=== PATIENT | male | born 1985 | race Caucasian/White ===

== ENCOUNTER 2017-08-28 23:41 | Inpatient (IN) | payer OTHER ==
[2017-08-29] MEDS ORDERED: MANNITOL 500 ML IV ONE (00:01)
[2017-08-29 00:33] LABS: ABSOLUTE BASOPHILS # (AUTO) 0.1 10^3/uL (0.0-0.2); ABSOLUTE EOSINOPHILS # (AUTO) 0.1 10^3/uL (0.0-0.6); ABSOLUTE LYMPHOCYTES (AUTO) 3.4 10^3/uL (0.5-4.7); ABSOLUTE MONOCYTES (AUTO) 0.4 10^3/uL (0.1-1.4); ABSOLUTE NEUT (AUTO) 3.6 10^3/uL (1.7-8.2); BASOPHILS % (AUTO) 1.1 % (0-2); EOSINOPHILS % (AUTO) 1.2 % (0-6); HEMATOCRIT 33.3 % (37.9-51.0); HEMOGLOBIN 10.9 g/dL (13.5-17.0); HGB HCT DIFFERENCE -0.6; LYMPHOCYTES % (AUTO) 44.7 % (13-45); MEAN CORPUSCULAR HGB CONC 32.8 g/dL (32.0-36.0); MEAN CORPUSCULAR VOLUME 95 fl (80-97); MONOCYTES % (AUTO) 4.7 % (3-13); RED BLOOD COUNT 3.52 10^6/uL (4.35-5.55); RED CELL DISTRIBUTION WIDTH 13.7 % (11.5-14.0); SEGMENTED NEUTROPHILS % (AUTO) 48.3 % (42-78); WHITE BLOOD COUNT 7.5 10^3/uL (4.0-10.5)
[2017-08-29 00:40] LABS: ALANINE AMINOTRANSFERASE 31 U/L (21-72); ALKALINE PHOSPHATASE 45 U/L (38-126); ASPARTATE AMINO TRANSFERASE 31 U/L (17-59); BILIRUBIN,DIRECT 0.1 mg/dL (0.0-0.4); BILIRUBIN,TOTAL 0.3 mg/dL (0.2-1.3); BLOOD UREA NITROGEN 14 mg/dL (7-20); CALCIUM 8.8 mg/dL (8.4-10.2); CARBON DIOXIDE 19 mmol/L (22-30); CHLORIDE 105 mmol/L (98-107); CREATININE RESULT 1.51 mg/dL (0.52-1.25); GLUCOSE 207 mg/dL (75-110); POTASSIUM 3.2 mmol/L (3.6-5.0); TOTAL PROTEIN 4.6 g/dL (6.3-8.2)
[2017-08-29] MEDS ORDERED: NICARDIPINE HCL RTU, ISO-OS 20 MG/200 ML RTUINJ IV PRN (00:48)
[2017-08-29 00:50] LABS: ANION GAP 19 (5-19); SODIUM 143.3 mmol/L (137-145)
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
[2017-08-29] MEDS ORDERED: DEXAMETHASONE SOD PHOS INJ 10 MG/1 ML VIAL IV PRN (02:32)
[2017-08-29] MEDS ORDERED: METOPROLOL TARTRATE PF/INJ 5 MG/5 ML SDV IV ONE (05:54)
[2017-08-29] MEDS ORDERED: NORMAL SALINE 1000 ML 1,000 ML IV ONE (07:27)
[2017-08-29] MEDS ORDERED: NORMAL SALINE 1000 ML 250 ML IV ONE (07:29)
[2017-08-29] MEDS ORDERED: NOREPINEPHRINE BITARTRATE INJ/PF 4 MG/4 ML SDV IV ONE (07:36)
[2017-08-29] MEDS ORDERED: PHENYLEPHRINE HCL INJ/PF 10 MG/1 ML SDV ONE (07:43)
[2017-08-29] MEDS ORDERED: POTASSI CL 20 MEQ/50 ML RIDER 20 MEQ/50 ML RTUPB IV ONE (08:23)
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
--- NOTE | 2017-08-29 08:52 | RADIOLOGY REPORT (SQ) ---
EXAM DESCRIPTION: CHEST SINGLE VIEW COMPLETED DATE/TIME: 08/29/2017 8:42 am REASON FOR STUDY: central line placement COMPARISON: AP chest 08/29/2017 EXAM PARAMETERS: NUMBER OF VIEWS: One view. TECHNIQUE: Single frontal radiographic view of the chest acquired. RADIATION DOSE: NA LIMITATIONS: None. FINDINGS: Endotracheal tube tip 4 5 cm above the violet. Nasogastric tube tip in the stomach, side port at the GE junction. Right-sided central line tip superior vena cava. LUNGS AND PLEURA: No pneumothorax. Lungs are clear. No pleural effusion. MEDIASTINUM AND HILAR STRUCTURES: No masses. Contour normal. HEART AND VASCULAR STRUCTURES: Heart normal in size. Normal vasculature. BONES: No acute findings. HARDWARE: As above OTHER: No other significant finding. IMPRESSION: Interval placement of a right subclavian triple lumen catheter with the tip in the super ior vena cava. No pneumothorax. Endotracheal and nasogastric tubes in good positioning. No acute infiltrates TECHNICAL DOCUMENTATION: JOB ID: [id number] [employer]- All Rights Reserved
[2017-08-29] MEDS ORDERED: RINGERS SOLUTION,LACTATED 1,000 ML IV ONE (09:00)
[2017-08-29 09:11] LABS: HEMATOCRIT 35.7 % (37.9-51.0); HGB HCT DIFFERENCE 0.3; MEAN CORPUSCULAR HEMOGLOBIN 30.8 pg (27.0-33.4); MEAN CORPUSCULAR HGB CONC 33.7 g/dL (32.0-36.0); MEAN CORPUSCULAR VOLUME 92 fl (80-97); RED CELL DISTRIBUTION WIDTH 14.1 % (11.5-14.0)
[2017-08-29 09:21] LABS: PARTIAL THROMBOPLASTIN TIME 27.9 SEC (23.5-35.8); PROTHROMBIN TIME 16.3 SEC (11.4-15.4)
[2017-08-29 09:31] LABS: ARTERIAL BLOOD BASE EXCESS -5.6 mmol/L; ARTERIAL BLOOD O2 SATURATION 99.4 % (94-98)
[2017-08-29 09:46] LABS: WHITE BLOOD COUNT 24.5 10^3/uL (4.0-10.5)
[2017-08-29] MEDS: DEXTROSE 5%-WATER 250 ML with PHENYLEPHRINE HCL 40 MG IV PRN ×6 (09:53→18:39)
[2017-08-29] MEDS: POTASSI CL 20 MEQ/50 ML RIDER 20 MEQ/50 ML RTUPB IV SCH ×2 (10:01→10:05)
[2017-08-29 10:46] LABS: ALANINE AMINOTRANSFERASE 78 U/L (21-72); ALBUMIN 3.7 g/dL (3.5-5.0); ALKALINE PHOSPHATASE 54 U/L (38-126); ANION GAP 9 (5-19); ASPARTATE AMINO TRANSFERASE 116 U/L (17-59); BILIRUBIN,DIRECT 0.3 mg/dL (0.0-0.4); BILIRUBIN,TOTAL 0.8 mg/dL (0.2-1.3); BLOOD UREA NITROGEN 13 mg/dL (7-20); CALCIUM 7.9 mg/dL (8.4-10.2); CARBON DIOXIDE 22 mmol/L (22-30); CHLORIDE 109 mmol/L (98-107); CREATININE RESULT 1.63 mg/dL (0.52-1.25); GLUCOSE 219 mg/dL (75-110); SODIUM 140.2 mmol/L (137-145); TOTAL PROTEIN 5.9 g/dL (6.3-8.2)
[2017-08-29 10:54] LABS: POTASSIUM 7.4 mmol/L (3.6-5.0)
[2017-08-29] MEDS: DEXTROSE 5%-WATER 250 ML with NOREPINEPHRINE BITARTRATE 4 MG IV PRN ×4 (12:12→19:48)
--- NOTE | 2017-08-29 12:29 | OPERATIVE REPORT E ---
Operative Report NAME: DALTON VASQUEZ : 1985 AGE: 31Y DATE OF SURGERY: 08/29/2017 ROOM: 609 PREOPERATIVE DIAGNOSIS: Patient needed central line for better IV access. Patient is brain and candidate for donor POSTOPERATIVE DIAGNOSIs Same PROCEDURE: Placement of right central line through the subclavian vein. SURGEON: JS BALLESTEROS M.D. ANESTHESIA: None. DESCRIPTION OF PROCEDURE: Patient was placed in Trendelenburg position. Patient is intubated and brain . The right upper chest was then prepped and draped in the usual sterile fashion. The right subclavian vein was then punctured and Guidewire passed through the needle towards the area of the superior vena cava. Puncture site was enlarged and a 3-way catheter is centered through the guidewire up to a distance of about 17 cm. The guidewire was removed and all the 3 ports showed EC egress of blood and EC ingress of saline. The puncture site was then anchored with 3-0 silk and Biopatch placed at the insertion site. A transparent dressing placed over the operative site. Chest x-ray will be obtained for placement. DICTATING PHYSICIAN: JS BALLESTEROS M.D. [id number] PHY#: [id number] ID: [id number] JOB#: [id number] ACCT: [id number] cc:JS BALLESTEROS M.D. > MTDD
[2017-08-29 13:37] LABS: HEMATOCRIT 37.3 % (37.9-51.0); HEMOGLOBIN 12.5 g/dL (13.5-17.0); HGB HCT DIFFERENCE 0.2; MEAN CORPUSCULAR HEMOGLOBIN 30.5 pg (27.0-33.4); MEAN CORPUSCULAR HGB CONC 33.4 g/dL (32.0-36.0); MEAN CORPUSCULAR VOLUME 91 fl (80-97); RED BLOOD COUNT 4.09 10^6/uL (4.35-5.55); RED CELL DISTRIBUTION WIDTH 14.1 % (11.5-14.0); WHITE BLOOD COUNT 29.6 10^3/uL (4.0-10.5)
[2017-08-29] MEDS ORDERED: SODIUM POLYSTYRENE SULFONATE 15 GM/60 ML PR ONE (15:30)
[2017-08-29] MEDS ORDERED: CALCIUM GLUCONATE 1000 MG/10 ML INJ IV ONE (15:30)
[2017-08-29 15:51] LABS: ARTERIAL BLOOD BASE EXCESS -1.6 mmol/L; ARTERIAL BLOOD O2 SATURATION 97.8 % (94-98)
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
[2017-08-29 16:50] LABS: HEMATOCRIT 37.9 % (37.9-51.0); HEMOGLOBIN 12.5 g/dL (13.5-17.0); HGB HCT DIFFERENCE -0.4; MEAN CORPUSCULAR HEMOGLOBIN 30.2 pg (27.0-33.4); MEAN CORPUSCULAR HGB CONC 33.1 g/dL (32.0-36.0); MEAN CORPUSCULAR VOLUME 91 fl (80-97); RED BLOOD COUNT 4.16 10^6/uL (4.35-5.55); RED CELL DISTRIBUTION WIDTH 14.3 % (11.5-14.0)
[2017-08-29 17:01] LABS: ALANINE AMINOTRANSFERASE 76 U/L (21-72); ALBUMIN 3.3 g/dL (3.5-5.0); ALKALINE PHOSPHATASE 51 U/L (38-126); ANION GAP 11 (5-19); ASPARTATE AMINO TRANSFERASE 145 U/L (17-59); BILIRUBIN,DIRECT 0.2 mg/dL (0.0-0.4); BILIRUBIN,TOTAL 0.6 mg/dL (0.2-1.3); BLOOD UREA NITROGEN 11 mg/dL (7-20); CALCIUM 8.9 mg/dL (8.4-10.2); CARBON DIOXIDE 23 mmol/L (22-30); CHLORIDE 115 mmol/L (98-107); CREATININE RESULT 1.42 mg/dL (0.52-1.25); GLUCOSE 223 mg/dL (75-110); SODIUM 148.9 mmol/L (137-145); TOTAL PROTEIN 5.4 g/dL (6.3-8.2)
[2017-08-29 17:07] LABS: POTASSIUM 5.5 mmol/L (3.6-5.0)
[2017-08-29 17:16] LABS: WHITE BLOOD COUNT 31.5 10^3/uL (4.0-10.5)
[2017-08-29] MEDS ORDERED: DEXTROSE 50%-WATER 25 GM/50 ML DISP.SYRIN IV PRN ×2 (18:23)
[2017-08-29] MEDS ORDERED: GLUCAGON,HUMAN RECOMB 1 MG INJ IM PRN (18:23)
[2017-08-29] MEDS ORDERED: DEXTROSE 40% GEL 15 GM TUBE PO PRN ×2 (18:23)
[2017-08-29] MEDS: RINGERS SOLUTION,LACTATED 1,000 ML IV PRN ×2 (18:42→22:18)
[2017-08-29] MEDS ORDERED: DEXTROSE 5%-WATER 1000 ML 1,000 ML IV ONE (19:15)
[2017-08-29] MEDS: INSULIN REG, HUMAN 100 UNIT/ML 3 ML VIAL (PYX) SUBCUT PRN (19:29)
[2017-08-29 20:18] LABS: MEAN CORPUSCULAR HGB CONC 33.6 g/dL (32.0-36.0); RED CELL DISTRIBUTION WIDTH 14.3 % (11.5-14.0)
[2017-08-29 20:31] LABS: HEMATOCRIT 31.3 % (37.9-51.0); HEMOGLOBIN 10.5 g/dL (13.5-17.0); HGB HCT DIFFERENCE 0.2; MEAN CORPUSCULAR HEMOGLOBIN 30.4 pg (27.0-33.4); MEAN CORPUSCULAR VOLUME 91 fl (80-97); RED BLOOD COUNT 3.45 10^6/uL (4.35-5.55); WHITE BLOOD COUNT 23.5 10^3/uL (4.0-10.5)
[2017-08-29 22:34] LABS: ALANINE AMINOTRANSFERASE 65 U/L (21-72); ALBUMIN 2.8 g/dL (3.5-5.0); ALKALINE PHOSPHATASE 39 U/L (38-126); ANION GAP 7 (5-19); ASPARTATE AMINO TRANSFERASE 130 U/L (17-59); BILIRUBIN,DIRECT 0.1 mg/dL (0.0-0.4); BILIRUBIN,TOTAL 0.3 mg/dL (0.2-1.3); BLOOD UREA NITROGEN 9 mg/dL (7-20); CALCIUM 8.6 mg/dL (8.4-10.2); CARBON DIOXIDE 28 mmol/L (22-30); CHLORIDE 117 mmol/L (98-107); CREATININE RESULT 1.48 mg/dL (0.52-1.25); GLUCOSE 207 mg/dL (75-110); POTASSIUM 4.6 mmol/L (3.6-5.0); SODIUM 151.7 mmol/L (137-145); TOTAL PROTEIN 4.7 g/dL (6.3-8.2)
[2017-08-29] MEDS: DEXTROSE 5%-WATER 1000 ML 1,000 ML IV PRN (23:22)
[2017-08-30 00:38] LABS: HEMATOCRIT 30.1 % (37.9-51.0); HEMOGLOBIN 10.1 g/dL (13.5-17.0); HGB HCT DIFFERENCE 0.2; MEAN CORPUSCULAR HEMOGLOBIN 30.6 pg (27.0-33.4); MEAN CORPUSCULAR HGB CONC 33.5 g/dL (32.0-36.0); MEAN CORPUSCULAR VOLUME 91 fl (80-97); RED CELL DISTRIBUTION WIDTH 14.2 % (11.5-14.0); WHITE BLOOD COUNT 22.2 10^3/uL (4.0-10.5)
[2017-08-30] MEDS ORDERED: DESMOPRESSIN ACETATE INJ 4 MCG/1 ML AMPULE IV ONE (00:45)
[2017-08-30] MEDS ORDERED: DESMOPRESSIN ACETATE INJ 4 MCG/1 ML AMPULE ONE (00:56)
[2017-08-30] MEDS: DEXTROSE 5%-WATER 250 ML with PHENYLEPHRINE HCL 40 MG IV PRN ×4 (01:12→21:17)
[2017-08-30] MEDS: DEXTROSE 5%-WATER 1000 ML 1,000 ML IV PRN ×2 (02:35→06:31)
[2017-08-30] MEDS: RINGERS SOLUTION,LACTATED 1,000 ML IV PRN (03:55)
[2017-08-30 05:09] LABS: HEMATOCRIT 26.1 % (37.9-51.0); HGB HCT DIFFERENCE 0.9; MEAN CORPUSCULAR HEMOGLOBIN 31.5 pg (27.0-33.4); MEAN CORPUSCULAR HGB CONC 34.5 g/dL (32.0-36.0); MEAN CORPUSCULAR VOLUME 91 fl (80-97); RED BLOOD COUNT 2.85 10^6/uL (4.35-5.55); RED CELL DISTRIBUTION WIDTH 14.3 % (11.5-14.0); WHITE BLOOD COUNT 20.3 10^3/uL (4.0-10.5)
[2017-08-30 05:29] LABS: ALANINE AMINOTRANSFERASE 63 U/L (21-72); ALBUMIN 2.4 g/dL (3.5-5.0); ALKALINE PHOSPHATASE 34 U/L (38-126); ANION GAP 7 (5-19); ASPARTATE AMINO TRANSFERASE 101 U/L (17-59); BILIRUBIN,DIRECT 0.1 mg/dL (0.0-0.4); BILIRUBIN,TOTAL 0.3 mg/dL (0.2-1.3); BLOOD UREA NITROGEN 8 mg/dL (7-20); CALCIUM 8.2 mg/dL (8.4-10.2); CARBON DIOXIDE 29 mmol/L (22-30); CHLORIDE 114 mmol/L (98-107); CREATININE RESULT 1.37 mg/dL (0.52-1.25); GLUCOSE 144 mg/dL (75-110); POTASSIUM 3.9 mmol/L (3.6-5.0); TOTAL PROTEIN 4.1 g/dL (6.3-8.2)
[2017-08-30] MEDS ORDERED: DEXTROSE 5%-1/2 NORMAL SALINE 1,000 ML IV PRN (07:02)
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
[2017-08-30 09:09] LABS: ARTERIAL BLOOD BASE EXCESS 1.6 mmol/L; ARTERIAL BLOOD O2 SATURATION 91.4 % (94-98)
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
[2017-08-30] MEDS ORDERED: DESMOPRESSIN ACETATE INJ 4 MCG/1 ML AMPULE IV SCH (10:00)
--- NOTE | 2017-08-30 10:00 | Progress Note ---
Provider Note Provider Note: Patient is brain-. Patient was pronounced brain at bedside with family after obtaining results from radiologist at 9:57 AM on 08/30/2017. Spoke with patient's and pulmonary is speaking with patient and family as well.
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
[2017-08-30 10:56] LABS: HEMOGLOBIN 9.9 g/dL (13.5-17.0); HGB HCT DIFFERENCE 0.7; MEAN CORPUSCULAR HEMOGLOBIN 31.8 pg (27.0-33.4); MEAN CORPUSCULAR HGB CONC 34.2 g/dL (32.0-36.0); MEAN CORPUSCULAR VOLUME 93 fl (80-97); RED BLOOD COUNT 3.13 10^6/uL (4.35-5.55); RED CELL DISTRIBUTION WIDTH 14.3 % (11.5-14.0); WHITE BLOOD COUNT 7.6 10^3/uL (4.0-10.5)
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
[2017-08-30 11:17] LABS: ALANINE AMINOTRANSFERASE 67 U/L (21-72); ALBUMIN 2.4 g/dL (3.5-5.0); ALKALINE PHOSPHATASE 40 U/L (38-126); ANION GAP 8 (5-19); ASPARTATE AMINO TRANSFERASE 123 U/L (17-59); BILIRUBIN,DIRECT 0.1 mg/dL (0.0-0.4); BILIRUBIN,TOTAL 0.3 mg/dL (0.2-1.3); BLOOD UREA NITROGEN 10 mg/dL (7-20); CALCIUM 8.1 mg/dL (8.4-10.2); CARBON DIOXIDE 29 mmol/L (22-30); CHLORIDE 111 mmol/L (98-107); CREATININE RESULT 2.27 mg/dL (0.52-1.25); GLUCOSE 148 mg/dL (75-110); POTASSIUM 3.9 mmol/L (3.6-5.0); TOTAL PROTEIN 4.2 g/dL (6.3-8.2)
--- NOTE | 2017-08-30 12:55 | RADIOLOGY REPORT (SQ) ---
EXAM DESCRIPTION: CHEST SINGLE VIEW COMPLETED DATE/TIME: 08/30/2017 12:44 pm REASON FOR STUDY: ETT placement COMPARISON: 08/29/2017, 0833 hours EXAM PARAMETERS: NUMBER OF VIEWS: Three views TECHNIQUE: Single frontal radiographic view of the chest acquired. RADIATION DOSE: NA LIMITATIONS: None. FINDINGS: The first 2 films demonstrate the endotracheal tube tip just below the vocal cords. The third film demonstrates that the endotracheal tube tip is 5 cm above the trachea, at the level of the clavicular heads. Right subclavian central line tip superior vena cava. Nasogastric tube tip and side port in the stom ach. This report was called to the patient's nurse in ICU. LUNGS AND PLEURA: Partial collapse of the right lower lobe, just above the hemidiaphragm. Remainder the right lung and left lung are well inflated and grossly clear. MEDIASTINUM AND HILAR STRUCTURES: No masses. Contour normal. HEART AND VASCULAR STRUCTURES: Heart normal in size. Normal vasculature. BONES: No acute findings. HARDWARE: As above OTHER: No other significant finding. IMPRESSION: Final of 3 films demonstrates the endotracheal tube tip in good positioning, 5 cm above the violet. Partial collapse of the right lower lobe Results called to the patient's ICU nurse TECHNICAL DOCUMENTATION: JOB ID: [id number] [employer]- All Rights Reserved
[2017-08-30 13:00] LABS: PATH REVIEW PATHOLOGIST REVIEWED
[2017-08-30] MEDS ORDERED: IPRATROPIUM/ALBUTEROL 0.5-2.5 MG/3 ML AMPUL NEB ONE (13:15)
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
[2017-08-30] MEDS ORDERED: POTASSI CL 40 MEQ/D5-1/2NS 1L 40 MEQ/1,000 ML RTUINJ IV ONE ×2 (13:53→22:13)
[2017-08-30 15:08] LABS: PROTHROMBIN TIME 17.6 SEC (11.4-15.4)
[2017-08-30 15:10] LABS: ARTERIAL BLOOD BASE EXCESS -2.2 mmol/L; ARTERIAL BLOOD O2 SATURATION 96.6 % (94-98)
--- NOTE | 2017-08-30 15:12 | Operative Report ---
Operative Report DATE OF SURGERY: 08/30/17 Operative Report: patient intubated and sedated "T" sized [place] scope no active bleeding; blood cot(s) distal trachea no splaying Hien muccosal corrugation R main and proximal L main purulent discharge R upper lobe small clots aspirated from RLL no abnormalities noted in RML L main a little narrow no blood or clots noted ASHLEY;lingula;LLL no masses;endobronchial lesions in either R or L lungs noted no clots noted in L lung bronchoalveolar lavage to lab for requested studies post procedure CXR somewhat improved current SAO2-99% FIO2-80% PREOPERATIVE DIAGNOSIS: aspiration blood +/-gastric content POSTOPERATIVE DIAGNOSIS: same OPERATION: fiberoptic bronchoscopy with brochoalveolar lavage SURGEON: OPAL CANALES ANESTHESIA: GA TISSUE REMOVED OR ALTERED: bronchoalveolar lavage R lower lobe COMPLICATIONS: none SAO2 94% before 94% after ESTIMATED BLOOD LOSS: 0 cc INTRAOPERATIVE FINDINGS: blood clots in distal trachea;no active bleeding; exudate RUL
--- NOTE | 2017-08-30 15:17 | RADIOLOGY REPORT (SQ) ---
EXAM DESCRIPTION: CHEST SINGLE VIEW COMPLETED DATE/TIME: 08/30/2017 2:44 pm REASON FOR STUDY: post bronch COMPARISON: Multiple previous since 08/29/2017 EXAM PARAMETERS: NUMBER OF VIEWS: One view. TECHNIQUE: Single frontal radiographic view of the chest acquired. RADIATION DOSE: NA LIMITATIONS: None. FINDINGS: Endotracheal tube tip is 4 cm above the violet. Nasogastric tube tip and side port in the stomach. Right subclavian central line tip superior vena cava. LUNGS AND PLEURA: Interval bronchoscopy. Partial re-expansion of the right lower lobe lobe. There a re persistent air bronchograms medially. Minimal left basilar atelectasis. No pneumothorax or pleural effusions. MEDIASTINUM AND HILAR STRUCTURES: No masses. Contour normal. HEART AND VASCULAR STRUCTURES: Heart normal in size. Normal vasculature. BONES: No acute findings. HARDWARE: As above OTHER: Report was discussed with Gustabo, the flight operation coordinator IMPRESSION: Tubes and lines in good positioning Partial re-expansion of the right lower lobe. Minimal left retrocardiac atelectasis TECHNICAL DOCUMENTATION: JOB ID: [id number]- All Rights Reserved
[2017-08-30] MEDS ORDERED: ALBUMIN HUMAN 500 ML IV PRN ×3 (15:57→18:30)
[2017-08-30] MEDS ORDERED: LEVOTHYROXINE SODIUM IV PRN ×2 (16:00)
[2017-08-30] MEDS ORDERED: NORMAL SALINE IV PRN ×2 (16:00)
[2017-08-30] MEDS ORDERED: DEXTROSE 50%-WATER 25 GM/50 ML DISP.SYRIN IV ONE (16:00)
[2017-08-30] MEDS ORDERED: LEVOTHYROXINE SODIUM INJ/PF 0.1 MG SDV IV ONE (16:30)
[2017-08-30] MEDS ORDERED: METHYLPREDNISOLONE INJ 1000 MG VIAL IV ONE (16:30)
[2017-08-30] MEDS ORDERED: INSULIN REG, HUMAN 100 UNIT/ML 3 ML VIAL (PYX) SUBCUT ONE (16:30)
[2017-08-30 17:54] LABS: ALANINE AMINOTRANSFERASE 42 U/L (21-72); ALBUMIN 3.8 g/dL (3.5-5.0); ALKALINE PHOSPHATASE 24 U/L (38-126); AMYLASE 136 U/L (30-110); ANION GAP 17 (5-19); ASPARTATE AMINO TRANSFERASE 80 U/L (17-59); BILIRUBIN,DIRECT 0.2 mg/dL (0.0-0.4); BILIRUBIN,TOTAL 0.6 mg/dL (0.2-1.3); BLOOD UREA NITROGEN 11 mg/dL (7-20); CALCIUM 7.8 mg/dL (8.4-10.2); CARBON DIOXIDE 20 mmol/L (22-30); CHLORIDE 107 mmol/L (98-107); CREATININE RESULT 3.41 mg/dL (0.52-1.25); GLUCOSE 218 mg/dL (75-110); LIPASE 79.4 U/L (23-300); PHOSPHORUS 1.3 mg/dL (2.5-4.5); SODIUM 144.3 mmol/L (137-145)
[2017-08-30 18:06] LABS: CREATINE KINASE MB 13.6 ng/mL (<4.55)
[2017-08-30 18:10] LABS: MAGNESIUM 1.1 mg/dL (1.6-2.3); POTASSIUM 2.4 mmol/L (3.6-5.0)
[2017-08-30 18:12] LABS: TROPONIN I 0.379 ng/mL
[2017-08-30] MEDS ORDERED: FUROSEMIDE INJ/PF 20 MG/2 ML SDV IV ONE (18:30)
[2017-08-30 18:41] LABS: HEMATOCRIT 16.2 % (37.9-51.0); HGB HCT DIFFERENCE 0.3; MEAN CORPUSCULAR HEMOGLOBIN 31.1 pg (27.0-33.4); MEAN CORPUSCULAR HGB CONC 33.7 g/dL (32.0-36.0); MEAN CORPUSCULAR VOLUME 92 fl (80-97); RED BLOOD COUNT 1.76 10^6/uL (4.35-5.55); RED CELL DISTRIBUTION WIDTH 14.1 % (11.5-14.0); WHITE BLOOD COUNT 3.3 10^3/uL (4.0-10.5)
--- NOTE | 2017-08-30 18:53 | EKG REPORT ---
SEVERITY:- ABNORMAL ECG - SINUS TACHYCARDIA REPOL ABNRM SUGGESTS ISCHEMIA, DIFFUSE LEADS : Confirmed by: Marc Medeiros MD 30-Aug-2017 18:53:02
[2017-08-30 19:07] LABS: HEMOGLOBIN 5.5 g/dL (13.5-17.0)
[2017-08-30] MEDS ORDERED: DEXTROSE 5% IV PRN (20:00)
[2017-08-30] MEDS ORDERED: POTASSIUM PHOS M BASIC D BASIC IV PRN (20:00)
[2017-08-30] MEDS ORDERED: WATER IV PRN (20:00)
[2017-08-30] MEDS: MAGNESIUM SULFATE 1 GM/D5W 100 ML IV SCH ×2 (20:01→21:17)
[2017-08-30] MEDS: POTASSI CL 40 MEQ/D5-1/2NS 1L 1000 ML IV PRN (22:23)
[2017-08-30] MEDS: INSULIN REG, HUMAN 100 UNIT/ML 3 ML VIAL (PYX) SUBCUT PRN (23:21)
[2017-08-30 23:23] LABS: AMORPHOUS SEDIMENT,URINE TRACE /HPF; APPEARANCE,URINE SLIGHTLY-CLOUDY; BILIRUBIN,URINE NEGATIVE (NEGATIVE); GLUCOSE, URINE NEGATIVE (NEGATIVE); KETONES,URINE NEGATIVE (NEGATIVE); LEUKOCYTE ESTERASE,URINE NEGATIVE (NEGATIVE); NITRITE,URINE NEGATIVE (NEGATIVE); PROTEIN,URINE 30 mg/dL (NEGATIVE); URINE SPECIFIC GRAVITY 1.009; UROBILINOGEN,URINE NEGATIVE mg/dL (<2.0)
[2017-08-30 23:26] LABS: ALANINE AMINOTRANSFERASE 40 U/L (21-72); ALBUMIN 3.4 g/dL (3.5-5.0); ALKALINE PHOSPHATASE 20 U/L (38-126); AMYLASE 108 U/L (30-110); ANION GAP 15 (5-19); ASPARTATE AMINO TRANSFERASE 104 U/L (17-59); BILIRUBIN,DIRECT 0.2 mg/dL (0.0-0.4); BILIRUBIN,TOTAL 1.3 mg/dL (0.2-1.3); BLOOD UREA NITROGEN 13 mg/dL (7-20); CALCIUM 7.4 mg/dL (8.4-10.2); CARBON DIOXIDE 19 mmol/L (22-30); CHLORIDE 106 mmol/L (98-107); CREATININE RESULT 3.17 mg/dL (0.52-1.25); GLUCOSE 217 mg/dL (75-110); LIPASE 33.8 U/L (23-300); MAGNESIUM 1.5 mg/dL (1.6-2.3); PHOSPHORUS 3.1 mg/dL (2.5-4.5); SODIUM 140.3 mmol/L (137-145); TOTAL PROTEIN 4.7 g/dL (6.3-8.2)
[2017-08-30 23:41] LABS: POTASSIUM 2.9 mmol/L (3.6-5.0)
[2017-08-31 00:11] LABS: HEMATOCRIT 21.5 % (37.9-51.0); HGB HCT DIFFERENCE 0.1; MEAN CORPUSCULAR HEMOGLOBIN 30.9 pg (27.0-33.4); MEAN CORPUSCULAR HGB CONC 33.6 g/dL (32.0-36.0); MEAN CORPUSCULAR VOLUME 92 fl (80-97); RED BLOOD COUNT 2.34 10^6/uL (4.35-5.55); RED CELL DISTRIBUTION WIDTH 14.4 % (11.5-14.0); WHITE BLOOD COUNT 5.3 10^3/uL (4.0-10.5)
[2017-08-31 00:14] LABS: HEMOGLOBIN 7.2 g/dL (13.5-17.0)
[2017-08-31] MEDS: POTASSIUM CHLORIDE 20 MEQ/50 ML RTU IV SCH ×2 (00:28→01:54)
[2017-08-31] MEDS ORDERED: CALCIUM CHLORIDE 10% PF/INJ 1000 MG/10 ML SDV IV ONE (00:30)
[2017-08-31] MEDS ORDERED: FUROSEMIDE INJ/PF 20 MG/2 ML SDV IV ONE (00:30)
[2017-08-31] MEDS: INSULIN REG, HUMAN 100 UNIT/ML 3 ML VIAL (PYX) SUBCUT PRN ×11 (01:16→20:09)
[2017-08-31] MEDS ORDERED: CALCIUM GLUCONATE 1000 MG/10 ML INJ IV PRN (01:57)
[2017-08-31] MEDS ORDERED: CALCIUM GLUCONATE 2,000 MG in DEXTROSE 5%-WATER 100 ML IV ONE (02:00)
[2017-08-31 02:40] LABS: ARTERIAL BLOOD BASE EXCESS -4.6 mmol/L; ARTERIAL BLOOD O2 SATURATION 99.1 % (94-98)
[2017-08-31] MEDS: DEXTROSE 5%-WATER 250 ML with PHENYLEPHRINE HCL 40 MG IV PRN ×4 (03:41→13:34)
[2017-08-31] MEDS: POTASSI CL 40 MEQ/D5-1/2NS 1L 1000 ML IV PRN (06:13)
[2017-08-31 06:20] LABS: HEMATOCRIT 24.8 % (37.9-51.0); HEMOGLOBIN 8.5 g/dL (13.5-17.0); HGB HCT DIFFERENCE 0.7; MEAN CORPUSCULAR HEMOGLOBIN 30.4 pg (27.0-33.4); MEAN CORPUSCULAR HGB CONC 34.2 g/dL (32.0-36.0); MEAN CORPUSCULAR VOLUME 89 fl (80-97); RED BLOOD COUNT 2.79 10^6/uL (4.35-5.55); RED CELL DISTRIBUTION WIDTH 15.4 % (11.5-14.0)
[2017-08-31 06:35] LABS: ALANINE AMINOTRANSFERASE 56 U/L (21-72); ALBUMIN 3.6 g/dL (3.5-5.0); ALKALINE PHOSPHATASE 27 U/L (38-126); ANION GAP 15 (5-19); ASPARTATE AMINO TRANSFERASE 146 U/L (17-59); BILIRUBIN,DIRECT 0.3 mg/dL (0.0-0.4); BILIRUBIN,TOTAL 1.5 mg/dL (0.2-1.3); BLOOD UREA NITROGEN 16 mg/dL (7-20); CALCIUM 7.7 mg/dL (8.4-10.2); CARBON DIOXIDE 22 mmol/L (22-30); CHLORIDE 105 mmol/L (98-107); CREATININE RESULT 3.68 mg/dL (0.52-1.25); GLUCOSE 216 mg/dL (75-110); PROTHROMBIN TIME 16.9 SEC (11.4-15.4); SODIUM 141.9 mmol/L (137-145)
[2017-08-31 06:36] LABS: PARTIAL THROMBOPLASTIN TIME 35.9 SEC (23.5-35.8)
[2017-08-31 06:45] LABS: POTASSIUM 5.7 mmol/L (3.6-5.0)
[2017-08-31 06:46] LABS: CREATINE KINASE MB 43.2 ng/mL (<4.55)
[2017-08-31 06:51] LABS: TROPONIN I 0.595 ng/mL
[2017-08-31 06:57] LABS: CREATINE KINASE 7875 U/L (55-170)
[2017-08-31 08:04] LABS: ANISOCYTOSIS SLIGHT; BAND NEUTROPHILS % (MANUAL) 18 % (3-5); BASOPHILS % (MANUAL) 0 % (0-2); EOSINOPHILS % (MANUAL) 0 % (0-6); LYMPHOCYTES % (MANUAL) 13 % (13-45); POLYCHROMASIA SLIGHT; TOTAL CELLS COUNTED 100
[2017-08-31 08:24] LABS: WHITE BLOOD COUNT 11.5 10^3/uL (4.0-10.5)
[2017-08-31 08:46] LABS: ARTERIAL BLOOD O2 SATURATION 95.6 % (94-98)
[2017-08-31] MEDS: 1/2 NORMAL SALINE 1,000 ML IV PRN ×2 (09:30→13:24)
[2017-08-31] MEDS ORDERED: FUROSEMIDE INJ/PF 20 MG/2 ML SDV IV PRN (11:40)
--- NOTE | 2017-08-31 11:46 | XCELERA REPORT ---
[address] [address] Transthoracic Echocardiogram Report Name: DALTON VASQUEZ Age: 31 yrs Gender: Male : 1985 Patient Status: Inpatient Patient Location: ICU^609^A Study Date: 08/31/2017 09:57 AM Height: 69 in Weight: 224 lb BSA: 2.2 m2 Procedure: A two-dimensional transthoracic echocardiogram with color flow and Doppler was performed. The study was technically difficult with many images being suboptimal in quality. Reason For Study: CDS (ORGAN DONATION) History: CDS (ORGAN DONATION). Ordering Physician: OPAL CANALES Performed By: Chary Ann Interpretation Summary The left ventricle is normal in size. There is normal left ventricular wall thickness. LV EF is 60% Left ventricular systolic function is normal. Doppler measurements suggest normal left ventricular diastolic function The left ventricular wall motion is normal. There is no thrombus. There is no ventricular septal defect visualized. The right ventricle is normal in size and function. The right atrium is normal. The left atrial size is normal. The interatrial septum is intact with no evidence for an atrial septal defect. There is no evidence of mitral valve prolapse. There is no vegetation seen on the mitral valve. There is no mitral valve stenosis. There is no mitral regurgitation noted. There is no aortic valvular vegetation. There is no aortic valve stenosis There is no LVOT obstruction. No aortic regurgitation is present. There is no tricuspid stenosis. There is a trace amount of tricuspid regurgitation RVSP is upper limits of normal.RVSP is 30 mm of Hg , with RA mean of 5. There is no pulmonic valvular stenosis. There is no pulmonic valvular regurgitation. The aortic root is normal size. There is no pericardial effusion. MMode/2D Measurements & Calculations RVDd: 1.8 cm LVIDd: 4.6 cm FS: 29.0 % Ao root diam: 2.2 cm IVSd: 0.96 cm LVIDs: 3.3 cm EDV(Teich): 97.1 ml LVPWd: 1.0 cm ESV(Teich): 43.0 ml Ao root area: 3.8 cm2 EF(Teich): 55.7 % LA dimension: 3.1 cm Doppler Measurements & Calculations MV E max anita: MV P1/2t max anita: Ao V2 max: LV V1 max P.3 cm/sec 96.3 cm/sec 131.9 cm/sec 3.2 mmHg MV A max anita: MV P1/2t: 35.4 msec Ao max PG: LV V1 max: 63.7 cm/sec 7.0 mmHg 89.8 cm/sec MV E/A: 1.5 MVA(P1/2t): 6.2 cm2 MV dec slope: 795.7 cm/sec2 MV dec time: 0.12 sec PA V2 max: TR max anita: 92.3 cm/sec 248.4 cm/sec PA max PG: TR max P.7 mmHg 3.4 mmHg Left Ventricle The left ventricle is normal in size. There is normal left ventricular wall thickness. LV EF is 60%. Left ventricular systolic function is normal. Doppler measurements suggest normal left ventricular diastolic function. The left ventricular wall motion is normal. There is no thrombus. There is no ventricular septal defect visualized. Right Ventricle The right ventricle is normal in size and function. Atria The right atrium is normal. The left atrial size is normal. The interatrial septum is intact with no evidence for an atrial septal defect. Mitral Valve There is no evidence of mitral valve prolapse. There is no vegetation seen on the mitral valve. There is no mitral valve stenosis. There is no mitral regurgitation noted. Aortic Valve There is no aortic valvular vegetation. There is no aortic valve stenosis. There is no LVOT obstruction. No aortic regurgitation is present. Tricuspid Valve There is no tricuspid stenosis. There is a trace amount of tricuspid regurgitation. RVSP is upper limits of normal.RVSP is 30 mm of Hg , with RA mean of 5. Pulmonic Valve There is no pulmonic valvular stenosis. There is no pulmonic valvular regurgitation. Great Vessels The aortic root is normal size. Effusions There is no pericardial effusion. : OPAL CANALES > Rtia Berger
[2017-08-31] MEDS ORDERED: ALBUMIN HUMAN 150 ML IV ONE (12:30)
[2017-08-31] MEDS ORDERED: 1/2 NORMAL SALINE 500 ML IV PRN ×2 (13:29→14:30)
[2017-08-31 13:32] LABS: ABSOLUTE LYMPHOCYTES (AUTO) 0.8 10^3/uL (0.5-4.7); ABSOLUTE MONOCYTES (AUTO) 1.1 10^3/uL (0.1-1.4); ABSOLUTE NEUT (AUTO) 11.3 10^3/uL (1.7-8.2); BASOPHILS % (AUTO) 0.1 % (0-2); HEMATOCRIT 24.2 % (37.9-51.0); HEMOGLOBIN 8.3 g/dL (13.5-17.0); HGB HCT DIFFERENCE 0.7; LYMPHOCYTES % (AUTO) 5.8 % (13-45); MEAN CORPUSCULAR HEMOGLOBIN 30.6 pg (27.0-33.4); MEAN CORPUSCULAR HGB CONC 34.4 g/dL (32.0-36.0); MEAN CORPUSCULAR VOLUME 89 fl (80-97); MONOCYTES % (AUTO) 8.2 % (3-13); RED BLOOD COUNT 2.72 10^6/uL (4.35-5.55); RED CELL DISTRIBUTION WIDTH 15.4 % (11.5-14.0); SEGMENTED NEUTROPHILS % (AUTO) 85.9 % (42-78); WHITE BLOOD COUNT 13.1 10^3/uL (4.0-10.5)
[2017-08-31 13:34] LABS: PARTIAL THROMBOPLASTIN TIME 34.1 SEC (23.5-35.8); PROTHROMBIN TIME 18.1 SEC (11.4-15.4)
[2017-08-31] MEDS ORDERED: ROCURONIUM BROMIDE INJ 50 MG/5 ML VIAL IV ONE (13:36)
[2017-08-31] MEDS ORDERED: VECURONIUM BROMIDE INJ 10 MG VIAL IV ONE ×2 (13:36→21:00)
[2017-08-31 13:42] LABS: ALANINE AMINOTRANSFERASE 66 U/L (21-72); ALKALINE PHOSPHATASE 34 U/L (38-126); ANION GAP 16 (5-19); ASPARTATE AMINO TRANSFERASE 175 U/L (17-59); BILIRUBIN,DIRECT 0.3 mg/dL (0.0-0.4); BILIRUBIN,TOTAL 1.4 mg/dL (0.2-1.3); BLOOD UREA NITROGEN 19 mg/dL (7-20); CALCIUM 7.5 mg/dL (8.4-10.2); CARBON DIOXIDE 23 mmol/L (22-30); CHLORIDE 105 mmol/L (98-107); CREATININE RESULT 3.69 mg/dL (0.52-1.25); GLUCOSE 143 mg/dL (75-110); MAGNESIUM 1.3 mg/dL (1.6-2.3); PHOSPHORUS 4.6 mg/dL (2.5-4.5); POTASSIUM 5.3 mmol/L (3.6-5.0); SODIUM 143.9 mmol/L (137-145); TOTAL PROTEIN 5.4 g/dL (6.3-8.2)
[2017-08-31 14:30] LABS: APPEARANCE,URINE SLIGHTLY-CLOUDY; BILIRUBIN,URINE NEGATIVE (NEGATIVE); GLUCOSE, URINE NEGATIVE (NEGATIVE); KETONES,URINE NEGATIVE (NEGATIVE); LEUKOCYTE ESTERASE,URINE NEGATIVE (NEGATIVE); NITRITE,URINE NEGATIVE (NEGATIVE); PROTEIN,URINE NEGATIVE (NEGATIVE); URINE SPECIFIC GRAVITY 1.005; UROBILINOGEN,URINE NEGATIVE mg/dL (<2.0)
[2017-08-31] MEDS: MAGNESIUM SULFATE 1 GM/D5W 100 ML IV SCH ×2 (14:37→15:48)
[2017-08-31] MEDS ORDERED: PIPERACILLIN/TAZOBACTAM 3.375 GM VIAL IV ONE (19:17)
[2017-08-31] MEDS ORDERED: VANCOMYCIN HCL INJ 1000 MG VIAL ONE (19:17)
[2017-08-31 19:55] LABS: ARTERIAL BLOOD BASE EXCESS -2.8 mmol/L
[2017-08-31 20:05] LABS: PROTHROMBIN TIME 18.5 SEC (11.4-15.4)
[2017-08-31 20:06] LABS: PARTIAL THROMBOPLASTIN TIME 42.5 SEC (23.5-35.8)
[2017-08-31 20:08] LABS: ALANINE AMINOTRANSFERASE 65 U/L (21-72); ALBUMIN 3.4 g/dL (3.5-5.0); ALKALINE PHOSPHATASE 37 U/L (38-126); ANION GAP 17 (5-19); ASPARTATE AMINO TRANSFERASE 174 U/L (17-59); BILIRUBIN,DIRECT 0.3 mg/dL (0.0-0.4); BILIRUBIN,TOTAL 1.2 mg/dL (0.2-1.3); BLOOD UREA NITROGEN 22 mg/dL (7-20); CALCIUM 7.4 mg/dL (8.4-10.2); CARBON DIOXIDE 21 mmol/L (22-30); CHLORIDE 106 mmol/L (98-107); CREATININE RESULT 3.78 mg/dL (0.52-1.25); GLUCOSE 177 mg/dL (75-110); MAGNESIUM 1.6 mg/dL (1.6-2.3); PHOSPHORUS 5.1 mg/dL (2.5-4.5); POTASSIUM 4.5 mmol/L (3.6-5.0); SODIUM 143.5 mmol/L (137-145); TOTAL PROTEIN 4.8 g/dL (6.3-8.2)
[2017-08-31] MEDS ORDERED: VANCOMYCIN HCL 1,500 MG in DEXTROSE 5%-WATER 250 ML IV ONE (20:30)
[2017-08-31] MEDS ORDERED: METHYLPREDNISOLONE INJ 1000 MG VIAL ONE (20:40)
[2017-08-31] MEDS ORDERED: FENTANYL CITRATE INJ/PF 100 MCG/2 ML AMPUL ONE ×3 (20:55→20:56)
[2017-08-31] MEDS ORDERED: MIDAZOLAM 2 MG/2 ML INJ ONE (20:56)
[2017-08-31] MEDS ORDERED: HEPARIN SOD (PORCINE) 1,000 UNIT/ML 10 ML VIAL ONE (20:59)
[2017-08-31] MEDS ORDERED: METHYLPREDNISOLONE INJ 1000 MG VIAL IV ONE (21:00)
[2017-08-31] MEDS ORDERED: PIPERACILLIN SODIUM/TAZOBACTAM 3.375 GM in NORMAL SALINE 100 ML IV ONE (21:00)
[2017-08-31 23:14] VITALS: BP 103/62
== END 2017-08-31 21:50 | disposition left against medical advice (07) | DRG 987 ==
LOC: EDBD → ER 23:41 → EH 08-29 07:14 → ICU 08-29 07:25
PROVIDERS: ADMIT Internal Medicine; ATTEND Internal Medicine
PROC: 5A1945Z Respiratory Ventilation, 24-96 Consecutive Hours (ICD-10-PCS; 2017-08-28)
PROC: 0BH17EZ Insertion of Endotracheal Airway into Trachea, Via Natural or Artificial Opening (ICD-10-PCS; 2017-08-28)
PROC: 30233N1 Transfusion of Nonautologous Red Blood Cells into Peripheral Vein, Percutaneous Approach (ICD-10-PCS; 2017-08-29)
PROC: 02HV33Z Insertion of Infusion Device into Superior Vena Cava, Percutaneous Approach (ICD-10-PCS; 2017-08-29)
PROC: 5A1935Z Respiratory Ventilation, Less than 24 Consecutive Hours (ICD-10-PCS; 2017-08-29)
PROC: 0BH17EZ Insertion of Endotracheal Airway into Trachea, Via Natural or Artificial Opening (ICD-10-PCS; 2017-08-29)
PROC: 04HY32Z Insertion of Monitoring Device into Lower Artery, Percutaneous Approach (ICD-10-PCS; 2017-08-30)
PROC: 4A133B1 Monitoring of Arterial Pressure, Peripheral, Percutaneous Approach (ICD-10-PCS; 2017-08-30)
PROC: 4A133J1 Monitoring of Arterial Pulse, Peripheral, Percutaneous Approach (ICD-10-PCS; 2017-08-30)
PROC: 3E0F73Z Introduction of Anti-inflammatory into Respiratory Tract, Via Natural or Artificial Opening (ICD-10-PCS; 2017-08-30)
PROC: 0B9F8ZX Drainage of Right Lower Lung Lobe, Via Natural or Artificial Opening Endoscopic, Diagnostic (ICD-10-PCS; principal; 2017-08-30 14:00)
DX: S01.80XA Unspecified open wound of other part of head, initial encounter (principal); J96.00 Acute respiratory failure, unspecified whether with hypoxia or hypercapnia; E87.0 Hyperosmolality and hypernatremia; D62 Acute posthemorrhagic anemia; F32.9 Major depressive disorder, single episode, unspecified; W34.00XA Accidental discharge from unspecified firearms or gun, initial encounter; Y92.019 Unspecified place in single-family (private) house as the place of occurrence of the external cause; E87.5 Hyperkalemia; F17.210 Nicotine dependence, cigarettes, uncomplicated; R40.2432 Glasgow coma scale score 3-8, at arrival to emergency department; I95.9 Hypotension, unspecified; Z91.5 Personal history of self-harm; Z52.9 Donor of unspecified organ or tissue; Z78.1 Physical restraint status
CPT/HCPCS: 1990; 31500; 31622; 36415; 36430; 51702; 70450; 71010; 78606; 80053; 81001; 82140; 82150; 82550; 82553; 82803; 82962; 83036; 83605; 83690; 83735; 84100; 84484; 85025; 85027; 85610; 85730; 86850; 86900; 86901; 86920; 87040; 87070; 87075; 87077; 87086; 87186; 87205; 93005; 93010; 93306; 94002; 94003; 96365; 96366; 96375; 99291; 99292; A9539; C1751; C1769; J0610; J1642; J1644; J1815; J1940; J2250; J2370; J2543; J2597; J2930; J3010; J3370; J3475; J3480; J3490; J7030; J7040; J7060; J7120; J7620; P9016; P9047; Q9969

== ENCOUNTER 2017-08-29 09:57 | Outpatient (CLI) | payer OTHER | END 2017-09-01 02:00 | disposition E | LOC: OROUT 09:57 | DX: Z52.9 Donor of unspecified organ or tissue (principal) ==